=== PATIENT | female | born 1990 | race Two or more races ===

== ENCOUNTER 2024-08-07 12:02 | Inpatient (IN) | payer MEDICAID, SELFPAY ==
[2024-08-07] VITALS (7 sets, daily range): BP systolic 136–165; BP diastolic 20–88; PULSE 99–110; RESP 18–28; TEMP 36.8–37.5; O2SAT 95–99
--- NOTE | 2024-08-07 | XR_ITS ---
Examination: MRI of brain without intravenous contrast. MRI brain with intravenous contrast. Date and time of exam:August 07, 2024 6:22 PM INDICATIONS: Seizures beginning 5:00 AM this morning history seizures Technique: Multiple axial and sagittal images of the brain to been obtained. Siemens high-resolution 1.52 Yvonne short bore scanner utilized. Sagittal sections, T1 weighted images, TR 500, TE 14, are performed. Axial sections proton-density and T2-weighted images have been obtained. Inversion recovery axial images, TR 9260, TE 111, TR 2500. Diffusion weighted images, axial sections, TR 4800, TE 128, B value 1000. Axial sections, ADC map, TR 4800, TE 128. Axial and coronal images were also obtained post 20 cc gadolinium administered intravenously. Findings:: Enlargement of the sella turcica is not present. The optic chiasm and infundibular stalk are not remarkable. There is no localized enlargement of the medulla or barry. Fourth ventricle and cerebellar tonsils appear normal in position. No subacute area of hemorrhage density is seen. Fourth ventricle is midline. Mass in the cerebellopontine angle region is not evident. 7th and 8th nerve complexes exhibit symmetry Globes are symmetrical Orbital musculature including medial lateral rectus muscles do not exhibit abnormality Increased white matter signal is evident, periventricular and punctate foci increased signal in the occipital white matter bilaterally and right frontal white matter Effacement of the cortical sulcal markings is not identified. Mass effect upon the ventricular system is not identified. Diffusion-weighted images demonstrate no focus of restricted diffusion Contrast images demonstrate no abnormal enhancement Impression: Punctate foci increased signal in the cerebral white matter, demyelinating disease pattern
--- NOTE | 2024-08-07 12:19 | PD.EDSEIZ ---
ED Seizures RME/HPI General Chief Complaint: Seizure Stated Complaint: SEIZURE WITH HIGH GLUCOSE, NAUSEA, H/A Time Seen by Provider: 08/07/24 12:19 Arrival date/time: 08/07/24 12:02 34 year old female with past medical history of DM and seizure (2x monthly) with c/o of emergency room via EMS with c/o of 4 episode since 5am this morning. pt is currently on keppra 500mg twice a day. pt had < 1 minute seizure while in ER. Per patient had multi vomiting episode when the 2nd seizure occurred prior to going to the local clinic. LOCATION: generalized decreased mentation without focality SEVERITY: Symptoms are described as being severe with limitations on activities of daily living CONTEXT: No identifiable inciting events. DURATION/TIMING: The symptoms started approximately one day ago and have been constant and progressively getting worse. ASSOCIATED SYMPTOMS: The patient is unable to identify any other associated symptoms. MODIFYING FACTORS: The patient is unable to identify any alleviating or aggravating symptoms. PERTINENT ROS: no fevers, no anorexia, no diarrhea, no ripping or tearing sensations, no syncope or presyncopal symptoms, denies trauma, no unexplained rashed or joint pain REVIEW OF SYSTEMS: See History of Present Illness - with the exception of those mentioned in the history of present illness, all other systems reviewed and reported as negative GENERAL: In general the patient is awake, interactive, in an emergency department gurney. obesity HEAD/EYES/EARS/NOSE/THROAT: normo-cephalic, atraumatic,+ lower lip cuts due to seizure. mucus membranes are moist, anicteric, palpebral conjunctiva is pink, trachea is midline. CARDIOVASCULAR: regular rate and regular rhythm, no murmurs, heart sounds are not distant, strong pulses in all four extremities that are equal and symmetric bilateral upper and lower extremities, normal capillary refill. CHEST/PULMONARY: normal chest rise and fall, good air movement, clear to auscultation bilaterally, normal inspiratory to expiratory ratios without evidence of respiratory distress. NECK: No midline/Paraspinal tenderness, no step off ROM/Strenght intact No Kernig and bruzinski sign. No trauma ABDOMEN: soft, not tender, no masses appreciated BACK: normal range of motion without pain. NEUROLOGICAL: cranio-facial features are symmetric, moves all four extremities equally without obvious limitations or weakness. EXTREMITY: no tenderness to palpation over the long bones or large joints of the bilateral upper and lower extremities, no joint swelling, no joint erythema, no signs of trauma, no unilateral leg swelling and no peripheral edema. SKIN: warm, dry, well-perfused, no jaundice, no rash, no telangiectasias or petechia. PSYCH: calm but postictal state? Related Data Allergies Allergy/AdvReac Type Severity Reaction Status Date / Time No Known Allergies Allergy Verified 08/07/24 13:07 Course Course Course Narrative: patient?BIBA s/p shaking/jerking movements witnessed in ER, pt had ?tonic-clonic seizure <1 minute the postictal state currently Differential diagnosis for seizures include nonadherence to anti-epileptic drugs or lowered seizure threshold from infection. No known head trauma, however will CT head as pt altered and increase frequency of seizure? Possible stroke though less likely given overarching symptoms of seizure and no overt focal neuro deficits. Workup: CBC, CMP, Drug screen, UA, CXR, beta, urine, alcohol, lactate, ECG, CT Brain, MRI brain with and without contrast Field Interventions: ED Interventions: ativan 2mg IV, keppra 1gram, IV fluids? Consult: Neurology re EEG Disposition:??Admit Quality Measures none Orders Category Date Time Status EKG (ED ONLY) *Do not use* NOW Care 08/07/24 12:23 Completed IV [Insert IV] STAT Care 08/07/24 12:22 Active MRI Screening NOW Care 08/07/24 12:36 Active Consult to Neurology / Tele-Neurology Stat Cons 08/07/24 12:[address] head/brain wo con Stat Exams 08/07/24 12:24 Completed EKG (ED Only) Stat Exams 08/07/24 12:22 Draft MR head/brain wo/w con Stat Exams 08/07/24 Ordered Alcohol, Blood Medical Stat Lab 08/07/24 12:49 Completed Beta Hydroxybutyrate Stat Lab 08/07/24 12:49 Completed CBC Stat Lab 08/07/24 12:49 Completed CMP [Comprehensive Metabolic Panel] Stat Lab 08/07/24 12:49 Completed Drug Screen,Urine Stat Lab 08/07/24 12:23 Ordered HCG,Qualitative Serum Stat Lab 08/07/24 12:49 Completed Lactic Acid [Lactate (Lactic Acid)] Stat Lab 08/07/24 12:49 Results Levetiracetam (Keppra)* Stat Lab 08/07/24 12:49 Received Lipase Stat Lab 08/07/24 12:49 Completed Mag [Magnesium] Stat Lab 08/07/24 12:49 Completed Troponin I Stat Lab 08/07/24 12:49 Completed LORazepam [Ativan Inj] Med 08/07/24 12:20 Discontinued 2 mg .ROUTE .STK-MED ONE LORazepam [Ativan Inj] Med 08/07/24 12:27 Discontinued 2 mg IVP X1 ONE LORazepam [Ativan Inj] Med 08/07/24 12:44 Discontinued 2 mg IVP X1 ONE Ondansetron Inj [Zofran Inj] Med 08/07/24 12:24 Pending 8 mg IV X1 ONE Sodium Chloride 0.9% 1000 ml [Ns] 1,000 ml Med 08/07/24 12:22 Discontinued IV 999 mls/hr Sodium Chloride 0.9% 1000 ml [Ns] 1,000 ml Med 08/07/24 12:28 Discontinued IV 999 mls/hr levETIRAcetam INJ [Keppra Inj] Med 08/07/24 12:24 Discontinued 1,000 mg IVP X1 ONE levETIRAcetam INJ [Keppra Inj] Med 08/07/24 12:27 Discontinued 1,000 mg IVP X1 ONE Reevaluation(s) Reevaluation #1: 1225 seizure episode 1 minute, post ti Procedures -ED EKG Interpretation #1: Date of EK08/07/24 Time of EK:54 Rate: 113 Interpretation: Reviewed by me EKG Impression: No ischemic changes and Sinus tachycardia Seizure MDM Narrative MDM Narrative:: DISPOSITION: Emergency Department nursing documentation was reviewed including triage complaint, associated symptoms, administration of medications, response to therapy and vital signs. Given the history, physical exam, and review of laboratory and imaging studies the patient is determined to be unsafe for discharge and is being moved into the hospital for further diagnostic tests, treatments, stabilization, and monitored response to therapy. I communicated the history, physical exam, pertinent laboratory and imaging studies to the inpatient physician. The inpatient physician has access to electronic copies of all emergency department laboratory testing and imaging studies as well as medications ordered and administered. Patient data External records reviewed:: None Clinical information provided by:: EMS and spouse Social determinants that could affect healthcare access:: none Patient has the following chronic illnesses:: DM, Seizure How is presenting disease/condition affected by chronic disease/condition?: exacerbated by Evaluation data The following diagnostics were reviewed and interpreted by me:: lab results, radiology exam(s) and EKG tracing(s) Lab and/or radiology exams considered but not ordered:: none Interpretation Summary: cbc wnl cmp bg 415, no dehydration blood glucose 425 trop negative urine wnl lactic 8.6 mg wnl trop negative Medications / Prescriptions Medications or Prescriptions considered but not ordered:: none Medication administrations:: Medication Administration History Ondansetron HCl (Ondansetron Inj 2 Mg/Ml Inj 2 Ml) 8 mg IV X1 ONE; Protocol Stop: 08/07/24 12:25 Discontinued Medications Sodium Chloride (Ns) 1,000 mls @ 999 mls/hr IV .Q1H1M ONE Stop: 08/07/24 13:22 Last Admin: 08/07/24 12:20 Dose: 999 mls/hr Documented By: AMI Sodium Chloride (Ns) 1,000 mls @ 999 mls/hr IV .Q1H1M ONE Stop: 08/07/24 13:28 Levetiracetam (Levetiracetam Inj 100 Mg/Ml Vial 5ml) 1,000 mg IVP X1 ONE Stop: 08/07/24 12:25 Last Admin: 08/07/24 12:40 Dose: 1,000 mg Documented By: AMI Levetiracetam (Levetiracetam Inj 100 Mg/Ml Vial 5ml) 1,000 mg IVP X1 ONE Stop: 08/07/24 12:28 Last Admin: 08/07/24 12:56 Dose: Not Given Documented By: AMI Non-Admin Reason: Cancelled by Provider Lorazepam (Lorazepam 2 Mg/Ml Vial) 2 mg IVP X1 ONE Stop: 08/07/24 12:28 Last Admin: 08/07/24 12:33 Dose: 2 mg Documented By: AMI Lorazepam (Lorazepam 2 Mg/Ml Vial) Confirm Administered Dose 2 mg .ROUTE .STK-MED ONE Stop: 08/07/24 12:21 Last Admin: 08/07/24 12:54 Dose: Not Given Documented By: AMI Non-Admin Reason: Duplicate Medication on eMAR Lorazepam (Lorazepam 2 Mg/Ml Vial) 2 mg IVP X1 ONE Stop: 08/07/24 12:45 Last Admin: 08/07/24 12:45 Dose: 2 mg Documented By: RD as state above Consultations Consultation(s) initiated? (list below): Yes Consultation #1 (Physician, Specialty, Details): Dr. Ramirez 7001 report MRI Brain, EEG and admission will call hospitalist once labs finalized for admission Consultation #2 (Physician, Specialty, Details): 135 will accept patient for admission. Diagnosis Seizure Differential Diagnosis: intractable seizure disorder, focal seizure, generalized seizure, epileptic seizure, status epilepticus and other (dka, dehydration, influenza ) Most likely diagnosis given after review of the tests above:: seizure Admission Indicated Admission indicated?: indicated Admission Request Was there a request for admission?: Yes Admission Attestation Admission request attestation: Discussed case with [] from Hospitalist service regarding admission. Discussed patients ED course, exam findings, labs, and radiology results. The Hospitalist [agrees,declines] to accept the patient for admission. Disposition Plan Disposition Plan: Admit Discharge Plan Plan Patient Disposition: Admit Acute Care w/in Hospital Problem List Clinical Impression: Epileptic seizure Patient/Caregiver Discharge Instructions Print Language: Maltese Stand Alone Forms: Rosa Award Info., Patient Portal Info Letter
[2024-08-07] MEDS: SODIUM CHLORIDE 0.9% 1000 ML 1,000 ML 999 ML IV ×2 (12:20→19:34)
--- NOTE | 2024-08-07 12:22 | EKG_ITS ---
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
--- NOTE | 2024-08-07 12:24 | XR_ITS ---
Examination: CT brain head without contrast. 2-D sagittal coronal reconstructions Date and time of exam:August 07, 2024 at 1227 hours INDICATIONS: Onset multiple seizures today CTDI: vol (mGy):49.1 DLP: (mGycm):946 Technique: Multiple CT axial sections of the brain have been obtained, 5 mm slice thickness. Contrast has not been administered. 2-D sagittal, coronal reconstructions have been obtained Low dose protocols were performed. One or more of the following dose reduction techniques were used; automated exposure control, adjustment of the mA and/or KV according to patient size, use of iterative reconstruction technique. Findings: No significant ventricular enlargement. Intra-axial or extra-axial hemorrhage density is not seen. No mass effect or midline shift Basal cisterns are not remarkable. Fourth ventricle is midline. Cranial vault intact. Impression: Negative for acute hemorrhage, mass effect or midline shift Consider elective brain MRI follow-up, pre and postcontrast, seizure protocol
[2024-08-07] MEDS: LORazepam 2 MG/ML VIAL IVP ×2 (12:33→12:45)
[2024-08-07] MEDS: levETIRAcetam INJ 100 MG/ML VIAL 5ML 1000 MG IVP ×2 (12:40→21:32)
[2024-08-07 12:58] LABS: Red Blood Count 4.43 Miln/mm3 (4.00-5.20); White Blood Count 9.2 Thou/mm3 (3.6-11.0)
[2024-08-07 12:59] LABS: Basophils % (Auto) 0 % (0-2.5); Eosinophils % (Auto) 0 % (0-10); Hematocrit 37.9 % (36.0-46.0); Hemoglobin 13.6 g/dL (12.0-16.0); Immature Granulocytes % (Auto) 1 % (0-0); Lymphocytes # (Auto) 1.4 Thou/mm3 (1.0-4.8); Lymphocytes % (Auto) 15 % (10-50); Mean Corpuscular HGB Conc 35.9 g/dl (31.0-37.0); Mean Corpuscular Hemoglobin 30.7 pg (25.0-35.0); Mean Corpuscular Volume 86 fL (80-100); Monocytes # (Auto) 0.7 Thou/mm3 (0.0-0.8); Monocytes % (Auto) 7 % (0-12); Neutrophils # (Auto) 7.1 Thou/mm3 (1.8-7.7); Neutrophils % (Auto) 77 % (37-80); Nucleated Red Blood Cell % 0 /100 WBC (0); Platelet Count 181 Thou/mm3 (140-440); RDW Standard Deviation 38.5 fL (36.4-46.3)
[2024-08-07 13:08] LABS: Beta Hydroxybutyrate 0.2 mmol/L (<0.6)
[2024-08-07 13:15] LABS: Lactate (Lactic Acid) 8.6 mMol/L (0.4-2.0)
[2024-08-07 13:32] LABS: HCG,Qualitative Serum Negative
[2024-08-07 13:50] LABS: Alanine Aminotransferase 30 U/L (10-49); Albumin, Serum 4.5 gm/dL (3.5-5.0); Albumin/Globulin Ratio 1.6 (1.2-2.2); Alcohol, Blood Medical < 3.0 mg/dL (0-10.0); Alkaline Phosphatase 112 U/L (46-116); Anion Gap 15 (7-16); Aspartate Amino Transferase 29 U/L (0-34); BUN/Creatinine Ratio 19 Ratio (12-20); Bilirubin,Total 0.3 mg/dL (0.3-1.2); Blood Urea Nitrogen 13 mg/dL (9-23); Calcium 8.9 mg/dL (8.3-10.6); Calcium (Corrected) 8.9 mg/dL (8.5-10.1); Chloride 104 mMol/L (98-107); Creatinine (Component) 0.7 mg/dL (0.6-1.3); Globulin 2.8 gm/dL (2.3-3.5); Lipase 42 U/L (12-53); Magnesium 1.2 mg/dL (1.6-2.6); Osmolality,Calculated 293 (275-295); Potassium 4.3 mMol/L (3.4-5.1); Sodium 138 mMol/L (136-145); Total Protein 7.3 gm/dL (5.7-8.2); Troponin I < 0.002 ng/mL (0.0-0.045); eGFR > 60 See Note
[2024-08-07 13:53] LABS: Glucose 415 mg/dL (74-106)
--- NOTE | 2024-08-07 15:52 | ESHP_ITS ---
Documentation for date of: 08/07/24 HPI History of Present Illness Chief complaint: seizures History of present illness: Patient is 34 years old female with past medical history of type 2 diabetes mellitus and seizure disorders presented to the ED due to multiple episodes of seizures. Patient is very somnolent and is unable to answer questions, is at the bedside providing most of the history. He reports that patient was normal until approximately August 04 when he found her on the toilet vomiting, he tried to help patient but she became stiff and started seizing which resolved by its own. Over the next couple of days patient was complaining of headaches. Today environmental assistant approximately 5 AM patient started seizing again multiple times. She was taken to the ED where she required multiple doses of benzodiazepines to control her seizures. reported that her previous episode of seizure was approximately 1 year ago. He cannot recall any possible trigger, denies patient to complain of any fever, chills, dizziness, syncope. also stated that they have been dealing with a lot of stress due to recent immigration to the [place]. On admission her glucose 415, lactic acid 8.6, magnesium 1.2, beta hydroxybutyrate 0.2, anion gap 15, HCO3 19. CT of the head was negative for acute findings. EKG was unremarkable. Neurology was consulted and recommended to admit patient to the hospital for further evaluation treatment. PMH: type 2 diabetes mellitus and seizure disorders. PSH: none. SH: unremarkable. FH: none. Allergies: NKA. Medications: Ozempic, glargine 25 units daily, levetiracetam 1 g daily, metformin. Review of Systems Review of Systems ROS Unobtainable: unobtainable due to mental status Exam Narrative Exam Gen: Well-developed and well-nourished female. HEENT: NCAT, PERRLA, EOMI, MMM, anicteric conjunctivae, poor dentition. CVS: normal S1 and S2. RRR. No M/R/G. Resp: CTA B/L. No rhonchi, rales, crackles or wheezing. Abd: soft, non-tender, non-distended. BS+ in all 4 quadrants. MSK: Good ROM in BUE & BLE. No edema or rash. Neuro: Limited exam due to significant somnolence, able to follow simple commands. Results: Labs 08/08/24 04:35 08/08/24 04:35 Labs: Short CBC 08/07/24 Range/Units 12:49 WBC 9.2 (3.6-11.0) Thou/mm3 Hgb 13.6 (12.0-16.0) g/dL Hct 37.9 (36.0-46.0) % Plt Count 181 (140-440) Thou/mm3 BMP 08/07/24 12:49 Sodium 138 Potassium 4.3 Chloride 104 Carbon Dioxide 19.0 L BUN 13 Creatinine 0.7 Glucose 415 H* Calcium 8.9 Cardiac Enzymes 08/07/24 Range/Units 12:49 Troponin I < 0.002 (0.0-0.045) ng/mL Liver Function 08/07/24 Range/Units 12:49 Total Bilirubin 0.3 (0.3-1.2) mg/dL AST 29 (0-34) U/L ALT 30 (10-49) U/L Alkaline Phosphatase 112 (46-116) U/L Albumin 4.5 (3.5-5.0) gm/dL Quality Measures Quality Measures VTE prophylaxis Medications Home Medications and Allergies Allergies Allergy/AdvReac Type Severity Reaction Status Date / Time No Known Allergies Allergy Verified 08/07/24 13:07 Visit Medications Dextrose (Dextrose 50%-Water Inj 50 Ml Syringe) 25 ml IV Q15MIN PRN PRN Reason: BG 50-70 responsive npo pt Stop: 09/06/24 15:36 Dextrose (Dextrose 50%-Water Inj 50 Ml Syringe) 50 ml IV Q15MIN PRN PRN Reason: BG <50 OR BG <70 & pt unresponsive Stop: 09/06/24 15:36 Enoxaparin Sodium (Enoxaparin Sod Inj 40 Mg/0.4 Ml Syringe) 40 mg SC QDAY [facility] Stop: 08/22/24 08:59 Glucagon (Glucagon Inj 1 Mg Vial) 1 mg IM Q15MIN PRN PRN Reason: BG <70, and no IV access Sodium Chloride (Ns) 1,000 mls @ 75 mls/hr IV .[id number] ROSA Stop: 08/08/24 18:24 Magnesium Sulfate (Magnesium Sulfate Ivpb) 4 gm in 50 mls @ 12.5 mls/hr IV X1 ONE Stop: 08/07/24 19:39 Insulin Human Lispro (Insulin Lispro (Admelog) 1 Unit/0.01 Ml Unit) 0 unit SC Q6HR ROSA; Protocol Stop: 09/06/24 15:44 Levetiracetam (Levetiracetam Inj 100 Mg/Ml Vial 5ml) 1,000 mg IVP Q12HR ROSA Stop: 09/06/24 20:59 Lorazepam (Lorazepam 2 Mg/Ml Vial) 2 mg IVP Q15M PRN PRN Reason: SEIZURES Stop: 08/12/24 15:41 Discontinued Medications Sodium Chloride (Ns) 1,000 mls @ 999 mls/hr IV .Q1H1M ONE Stop: 08/07/24 13:22 Last Admin: 08/07/24 12:20 Dose: 999 mls/hr Sodium Chloride (Ns) 1,000 mls @ 999 mls/hr IV .Q1H1M ONE Stop: 08/07/24 13:28 Levetiracetam (Levetiracetam Inj 100 Mg/Ml Vial 5ml) 1,000 mg IVP X1 ONE Stop: 08/07/24 12:25 Last Admin: 08/07/24 12:40 Dose: 1,000 mg Levetiracetam (Levetiracetam Inj 100 Mg/Ml Vial 5ml) 1,000 mg IVP X1 ONE Stop: 08/07/24 12:28 Last Admin: 08/07/24 12:56 Dose: Not Given Lorazepam (Lorazepam 2 Mg/Ml Vial) 2 mg IVP X1 ONE Stop: 08/07/24 12:28 Last Admin: 08/07/24 12:33 Dose: 2 mg Lorazepam (Lorazepam 2 Mg/Ml Vial) 2 mg IVP X1 ONE Stop: 08/07/24 12:45 Last Admin: 08/07/24 12:45 Dose: 2 mg Ondansetron HCl (Ondansetron Inj 2 Mg/Ml Inj 2 Ml) 8 mg IV X1 ONE; Protocol Stop: 08/07/24 12:25 Assessment & Plan Plan Patient is 34 years old female with past medical history of type 2 diabetes mellitus and seizure disorders presented to the ED due to multiple episodes of seizures. Neurology was consulted and recommended to admit patient to the hospital for further evaluation treatment. #Status epilepticus. #History of seizure disorder. -Patient have not had seizures for almost 1 year, on August 04 she developed first episode of seizure during vomiting VePesid but her which resolved by its own. Since then she was complaining of headaches on and off. On August 07 environmental assistant after approximately 5 AM she started seizing continuously and was taken to the ED. She was requiring multiple benzodiazepine administrations to control her seizures. She takes levetiracetam 1 g daily at home. Plan: -Neurology was consulted. -Levetiracetam 1 g twice daily was started. -Brain MRI ordered. -EEG ordered. -Admitted to telemetry with seizure precautions. -Lorazepam as needed for seizures. #Hyperglycemia. #History of type 2 diabetes mellitus. -Patient is taking metformin, insulin glargine 25 units daily and Ozempic. -On admission glucose 415, BHB 0.2, anion gap 15. No A1c records. Plan: -10 units of regular insulin now. -Continue monitoring glucose. -Started on sliding scale insulin. -Resume home insulin glargine 25 units daily. -Hold home metformin and Ozempic. #Lactic acidosis. -likely due to status epilepticus, will continue to monitor. #Hypomagnesemia. -repleted with 4g of Mg sulfate IV. FEN: NPO. DVT prophylaxis: Lovenox. GI prophylaxis: none. Dispo: telemetry. CODE STATUS: FULL CODE. Plan of care discussed with attending Dr. White. Herbert Hui MD, PGY 2. Disclaimer: This note was dictated by speech recognition. Minor errors in um rn may be present due to voice recognition software. Attending Provider Attestation/Addendum I reviewed labs, imaging, EKG, home medications and prior available records. Face to face evaluation was performed by me. I have personally examined the patient and discussed assessment and plan with the IM team. I reviewed the resident note and agree with the plan with exceptions as below. 34-year-old female with history of seizure disorder who presented with multiple tonic-clonic seizures Seizure disorder, uncontrolled Uncontrolled diabetes mellitus with hyperglycemia, type II Lactic acidosis, likely due to seizure Hypomagnesemia Her seizures are likely precipitated by hyperglycemia in addition to suboptimal therapy with Keppra Increased Keppra to 1 g twice daily Started the patient on insulin therapy. Monitor fingersticks Repleted magnesium Trend lactic acid Consulted neurology. Ordered MRI of the brain and EEG.
[2024-08-07 15:53] LABS: Reflex Lactate? Y
[2024-08-07 16:17] LABS: Lactic Acid, 3 HR 1.4 mMol/L (0.4-2.0)
[2024-08-07 16:20] LABS: Amphetamine/Methamp Scrn,U Negative (Negative); Barbiturate Screen,Urine Negative (Negative); Benzodiazepines Screen,Urine Negative (Negative); Benzoylecgonine Screen, Ur Negative (Negative); Fentanyl Screen,Urine Negative (Negative); Opiate Screen,Urine Negative (Negative); THC Screen,Urine Negative (Negative)
[2024-08-07 16:47] LABS: Creatine Kinase 70 U/L (34-171); Phosphorous 2.7 mg/dL (2.4-5.1)
--- NOTE | 2024-08-07 17:08 | PC.CC ---
Patient is a 34 year-old female who presents to the hospital for seizures. Rosie MENDOZA made [id number] contact with patient. ASW introduced self, role, and reason for visit. At bedside was patient's , You Mckeon who completed initial assessment with ASW as patient was asleep not alert. Patient's confirmed information on demographics and reports to living at home with the patient, their 7 year-old son, and his [id number]. The family moved here from [place] 8 months ago under witness protection. Per the patient is unemployed. Patient is able to complete her own ADLs and is able to ambulate independently. The patient does not use any DME at home. Patient does not have a primary care provider but plans on going to [facility] in [place] as it is close to their home. Upon discharge the patient plans to return home. social services specialist to follow-up with any discharge needs.
--- NOTE | 2024-08-07 19:30 | PC.NURSE ---
First contact with pt in Room 9, pt in gown, connected to bedside cardiac nurse, call light within reach. Seizure precautions in place, +siderails padded, suction ready at bedside. Pt's currently at bedside, updated on plan of care.
[2024-08-07] MEDS: Magnesium Sulfate 4 GM Ivpb 4 GM/50 ML BAG IV (19:34)
[2024-08-07] MEDS: INSULIN LISPRO (AdmeLOG) 1 UNIT/0.01 ML UNIT SC (19:38)
[2024-08-07] MEDS: SODIUM CHLORIDE 0.9% 1000 ML 1,000 ML 75 ML IV (21:31)
[2024-08-07] MEDS: INSULIN GLARGINE (Lantus) 5 UNIT/0.05 ML (PER 5 UNITS) 25 UNIT SC (21:38)
--- NOTE | 2024-08-07 22:26 | PD.NEUROCONS ---
History of Present Illness Data of Consult Requesting Physician: Gino White MD Primary Care Provider: Physician No Primary/Family Consult Narrative History of present illness: Patient is a 34 years old female with type 2 diabetes mellitus and seizure disorder presented to the ER due to multiple episodes of seizures. H er reports that patient was normal until approximately August 04 when he found her on the toilet vomiting, he tried to help patient but she became stiff and started seizing which resolved by its own. Over the next couple of days patient was complaining of headaches. Since 5 AM today, patient started seizing again multiple times. She was taken to the ER where she required multiple doses of benzodiazepines to control her seizures. reported that her previous episode of seizure was approximately 1 year ago. He cannot recall any possible trigger, denies any fever, chills, dizziness, syncope. also stated that they have been dealing with a lot of stress due to recent immigration to the [place]. Workup in the ER: Glucose 415, lactic acid 8.6, magnesium 1.2, beta hydroxybutyrate 0.2, anion gap 15, HCO3 19. CT of the head was negative for acute findings. EKG was unremarkable. Neurology was consulted and recommended to admit patient to the hospital for further evaluation treatment. cc:: cc: Gino White MD Review of Systems Review of Systems Systems Reviewed: All systems reviewed, normal except as documented Meds Home Medications and Allergies Allergies Allergy/AdvReac Type Severity Reaction Status Date / Time No Known Allergies Allergy Verified 08/07/24 13:07 Exam - Neurology Vital Signs Temp Pulse Resp BP Pulse Ox O2 Del Method O2 Flow Rate 98.3 F 103 H 24 H 165/85 H 97 Room Air 2 08/07/24 21:30 08/07/24 21:30 08/07/24 21:30 08/07/24 21:30 08/07/24 21:30 08/07/24 21:30 08/07/24 17:23 Narrative Exam GENERAL APPEARANCE: Well-developed, obese built female in no acute distress. HEENT: Normocephalic, atraumatic, extraocular movements intact. Pupils: Equal reacting to light and accommodation NECK: Supple, no JVD or bruits. CARDIOVASULAR: Heart: S1, S2 heard, regular without S3-S4 or murmur no rubs or gallops. LUNGS/CHEST: Clear to auscultation bilaterally. No rails, rhonchi, or wheezing. Normal inspection. ABDOMEN: Soft, nontender, with normal bowel sounds. No pulsatile masses. No rebound, rigidity, or guarding. Normal inspection and palpation. EXTREMITIES: Normal inspection and palpation. No edema, clubbing or cyanosis. SKIN: Warm and dry without rashes. Normal inspection. MUSCULOSKELETAL: No cervical, thoracic, lumbar or midline bony tenderness. Normal inspection. NEURO: Alert, awake and oriented x3. Cranial nerves: II through XII grossly intact. Speech and language: Normal with no dysarthria or dysphasia. Motor system: Tone and bulk: Normal: Strength: 5 out of 5 in all 4 extremities; No pronator drift noted. Deep tendon reflexes: 2+ bilaterally symmetrical. Plantar reflex: Downgoing bilaterally. Sensory system: Intact to all modalities of sensation bilaterally. Coordination: Intact to fafoaz-xcuj-teuzm and wzch-bkns-bkgt test bilaterally. No ataxia, no dysmetria, or dysdiadochokinesia noted. No intention tremors noted. Gait: Not tested. No signs of meningeal irritation noted. PSYCHIATRIC: Normal mood and affect. Results Labs 08/08/24 04:35 08/07/24 12:49 Labs: Short CBC 08/07/24 Range/Units 12:49 WBC 9.2 (3.6-11.0) Thou/mm3 Hgb 13.6 (12.0-16.0) g/dL Hct 37.9 (36.0-46.0) % Plt Count 181 (140-440) Thou/mm3 BMP 08/07/24 12:49 Sodium 138 Potassium 4.3 Chloride 104 Carbon Dioxide 19.0 L BUN 13 Creatinine 0.7 Glucose 415 H* Calcium 8.9 Cardiac Enzymes 08/07/24 08/07/24 Range/Units 12:49 16:14 Total Creatine Kinase 70 (34-171) U/L Troponin I < 0.002 (0.0-0.045) ng/mL Liver Function 08/07/24 Range/Units 12:49 Total Bilirubin 0.3 (0.3-1.2) mg/dL AST 29 (0-34) U/L ALT 30 (10-49) U/L Alkaline Phosphatase 112 (46-116) U/L Albumin 4.5 (3.5-5.0) gm/dL Assessment & Plan Assessment and plan (1) Epileptic seizure: Status: Acute Assessment and plan: loaded with keppra. continue with 1500 mg bid FU with EEG AND MRI brain with contrast Sz precautions and Ativan as needed. (2) Acute hyperglycemia: Status: Acute Assessment and plan: needs better control.
[2024-08-08] VITALS (9 sets, daily range): BP systolic 108–147; BP diastolic 73–84; PULSE 92–103; RESP 19–93; TEMP 36.3–37.4; O2SAT 94–100; BMI 41.3
[2024-08-08] MEDS: INSULIN LISPRO (AdmeLOG) 1 UNIT/0.01 ML UNIT SC ×4 (00:35→17:54)
[2024-08-08 06:09] LABS: Basophils % (Auto) 0 % (0-2.5); Eosinophils % (Auto) 0 % (0-10); Hemoglobin 12.8 g/dL (12.0-16.0); Immature Granulocytes % (Auto) 1 % (0-0); Immature Granulocytes Auto 0.04 Thou/mm3 (0.00-0.00); Lymphocytes % (Auto) 25 % (10-50); Mean Corpuscular HGB Conc 35.6 g/dl (31.0-37.0); Mean Corpuscular Hemoglobin 30.8 pg (25.0-35.0); Mean Corpuscular Volume 87 fL (80-100); Monocytes # (Auto) 0.8 Thou/mm3 (0.0-0.8); Monocytes % (Auto) 10 % (0-12); Neutrophils # (Auto) 5.1 Thou/mm3 (1.8-7.7); Neutrophils % (Auto) 64 % (37-80); Nucleated Red Blood Cell % 0 /100 WBC (0); Platelet Count 187 Thou/mm3 (140-440); RDW Standard Deviation 39.2 fL (36.4-46.3); Red Blood Count 4.16 Miln/mm3 (4.00-5.20)
[2024-08-08 06:37] LABS: Alanine Aminotransferase 22 U/L (10-49); Albumin, Serum 4.1 gm/dL (3.5-5.0); Albumin/Globulin Ratio 1.6 (1.2-2.2); Alkaline Phosphatase 99 U/L (46-116); Anion Gap 10 (7-16); Aspartate Amino Transferase 18 U/L (0-34); BUN/Creatinine Ratio 16 Ratio (12-20); Bilirubin,Total 0.3 mg/dL (0.3-1.2); Blood Urea Nitrogen 8 mg/dL (9-23); Carbon Dioxide 25.1 mMol/L (20.0-31.0); Chloride 103 mMol/L (98-107); Creatinine (Component) 0.5 mg/dL (0.6-1.3); Globulin 2.6 gm/dL (2.3-3.5); Glucose 183 mg/dL (74-106); Magnesium 1.7 mg/dL (1.6-2.6); Osmolality,Calculated 278 (275-295); Phosphorous 2.9 mg/dL (2.4-5.1); Potassium 3.3 mMol/L (3.4-5.1); Sodium 138 mMol/L (136-145); Thyroid Stimulating Hormone 5.63 uIU/mL (0.55-4.78); Total Protein 6.7 gm/dL (5.7-8.2); eGFR > 60 See Note
[2024-08-08 06:51] LABS: Glucose Estimated Average 189 mg/dL (80-131); Hemoglobin A1C 8.2 % Hgb (4.8-6.0)
[2024-08-08] MEDS: POTASSIUM CHLORIDE 20 mEq TABCR 40 MEQ PO (08:30)
[2024-08-08] MEDS: Magnesium Sulfate 2 GM Ivpb 2 GM/50 ML BAG IV (08:31)
[2024-08-08] MEDS: levETIRAcetam INJ 100 MG/ML VIAL 5ML 1000 MG IVP (08:31)
[2024-08-08] MEDS: ENOXAPARIN SOD INJ 40 MG/0.4 ML SYRINGE SC (08:31)
[2024-08-08] MEDS: levETIRAcetam INJ 100 MG/ML VIAL 5ML 500 MG IVP (08:50)
[2024-08-08 09:51] LABS: Free T4 (Free Thyroxine) 1.15 ng/dL (0.89-1.76)
--- NOTE | 2024-08-08 10:49 | PC.SS ---
rounding note: EEG and MRI pending. :Patient is from home and will return home.
[2024-08-08] MEDS: SODIUM CHLORIDE 0.9% 1000 ML 1,000 ML 75 ML IV (11:32)
--- NOTE | 2024-08-08 15:10 | ESPR_ITS ---
Documentation for date of: 08/08/24 Subjective Subjective Interval history: Patient seen at bedside. No acute overnight events. She has remained seizure free since admission, no fevers either. Evaluated by Neurology and started on Keppra 1500mg BID. MRI shows a demyelinating pattern. Pending EEG Exam Vital Signs Temp Pulse Resp BP Pulse Ox O2 Del Method O2 Flow Rate 97.7 F 92 21 H 112/74 95 Room Air 2 08/08/24 12:00 08/08/24 12:00 08/08/24 12:00 08/08/24 12:00 08/08/24 12:00 08/08/24 12:00 08/07/24 17:23 Narrative Exam GENERAL: AAOX3 NEURO: BENCH MOLDER grossly intact, moves extremities x4 HEENT: Moist mucosa. Eyes open, symmetrical, & clear CARDIO: No chest pain on palpation. Heart RRR, no obvious murmurs PULM: No noted coughing/dyspnea. Lungs CTA B/L GI: Abdomen soft, nondistended, no pain on palpation. BSx4 URO/INFORMATION SERVICES ASSISTANT:: No further abnormalities noted. SKIN/MSK/EXT: No wounds/rashes/edema/amputations, no pain on palpation. Pedal pulses present B/L Objective Labs 08/09/24 05:25 08/09/24 05:25 Labs: Laboratory Results - last 24 hr 08/07/24 08/07/24 08/07/24 15:53 16:14 16:14 WBC RBC Hgb Hct MCV MCH MCHC RDW Std Deviation Plt Count Neut % (Auto) Lymph % (Auto) [place] % (Auto) Eos % (Auto) Baso % (Auto) Neut # (Auto) Lymph # (Auto) [place] # (Auto) Eos # (Auto) Baso # (Auto) Immature Gran # (Auto) Absolute Nucleated RBC Immature Gran % Nucleated RBC % Sodium Potassium Chloride Carbon Dioxide Anion Gap BUN Creatinine Estim Creat Clear Calc eGFR BUN/Creatinine Ratio Glucose Estimated Ave Glu mg/dL Hemoglobin A1c Calculated Osmolality Lactic Acid 1.4 Cancelled Calcium Corrected Calcium Phosphorus 2.7 Magnesium Total Bilirubin AST ALT Alkaline Phosphatase Total Creatine Kinase 70 Total Protein Albumin Globulin Albumin/Globulin Ratio TSH Free T4 Urine Opiates Screen Negative Urine Fentanyl Screen Negative Ur Barbiturates Screen Negative U Amphetamin/Meth Scrn Negative U Benzodiazepines Scrn Negative U Cocaine Metab Screen Negative U Marijuana (THC) Screen Negative 08/08/24 04:35 WBC 8.0 RBC 4.16 Hgb 12.8 Hct 36.0 MCV 87 MCH 30.8 MCHC 35.6 RDW Std Deviation 39.2 Plt Count 187 Neut % (Auto) 64 Lymph % (Auto) 25 [place] % (Auto) 10 Eos % (Auto) 0 Baso % (Auto) 0 Neut # (Auto) 5.1 Lymph # (Auto) 2.0 [place] # (Auto) 0.8 Eos # (Auto) 0.0 Baso # (Auto) 0.0 Immature Gran # (Auto) 0.04 H Absolute Nucleated RBC 0.00 Immature Gran % 1 H Nucleated RBC % 0 Sodium 138 Potassium 3.3 L D Chloride 103 Carbon Dioxide 25.1 Anion Gap 10 BUN 8 L Creatinine 0.5 L Estim Creat Clear Calc Not Performed. eGFR > 60 BUN/Creatinine Ratio [address] Glu mg/dL 189 H Hemoglobin A1c 8.2 H Calculated Osmolality 278 Lactic Acid Calcium 8.0 L Corrected Calcium 8.0 L Phosphorus 2.9 Magnesium 1.7 Total Bilirubin 0.3 AST 18 ALT 22 Alkaline Phosphatase 99 Total Creatine Kinase Total Protein 6.7 Albumin 4.1 Globulin 2.6 Albumin/Globulin Ratio 1.6 TSH 5.63 H Free T4 1.15 Urine Opiates Screen Urine Fentanyl Screen Ur Barbiturates Screen U Amphetamin/Meth Scrn U Benzodiazepines Scrn U Cocaine Metab Screen U Marijuana (THC) Screen Quality Measures Quality Measures VTE prophylaxis Assessment & Plan Assessment Current Active Medications: Generic Name Dose Route Start Last Admin Trade Name Freq PRN Reason Stop Dose Admin Dextrose 25 ml 08/07/24 15:37 Dextrose 50%-Water Inj 50 Ml Syringe IV 09/06/24 15:36 Q15MIN PRN BG 50-70 responsive npo pt Dextrose 50 ml 08/07/24 15:37 Dextrose 50%-Water Inj 50 Ml Syringe IV 09/06/24 15:36 Q15MIN PRN BG <50 OR BG <70 & pt unresponsive Enoxaparin Sodium 40 mg 08/08/24 09:00 08/08/24 08:31 Enoxaparin Sod Inj 40 Mg/0.4 Ml Syringe SC 08/22/24 08:59 40 mg QDAY ROSA Administration Glucagon 1 mg 08/07/24 15:37 Glucagon Inj 1 Mg Vial IM Q15MIN PRN BG <70, and no IV access Sodium Chloride 1,000 mls @ 75 mls/hr 08/07/24 15:45 08/08/24 11:32 Ns IV 08/08/24 18:24 75 mls/hr .[id number] ROSA Administration Insulin Glargine 25 unit 08/07/24 21:00 08/07/24 21:38 Insulin Glargine (Lantus) 5 Unit/0.05 Ml (Per 5 Units) SC 09/06/24 20:59 25 unit HS ROSA Administration Insulin Human Lispro 0 unit 08/08/24 11:30 08/08/24 11:27 Insulin Lispro (Admelog) 1 Unit/0.01 Ml Unit SC 09/07/24 11:29 3 unit AC ROSA Administration Protocol Levetiracetam 1,500 mg 08/08/24 21:00 Levetiracetam Inj 100 Mg/Ml Vial 5ml IVP 09/07/24 20:59 Q12HR ROSA Lorazepam 2 mg 08/07/24 15:42 Lorazepam 2 Mg/Ml Vial IVP 08/12/24 15:41 Q15M PRN SEIZURES Plan Summary: The patient is 34 years old female with past medical history of type 2 diabetes mellitus and seizure disorders presented to the ED due to multiple episodes of seizures. Neurology was consulted and recommended to admit patient to the hospital for further evaluation treatment. #Status epilepticus. #History of seizure disorder. -Patient have not had seizures for almost 1 year, on August 04 she developed first episode of seizure during vomiting VePesid but her which resolved by its own. Since then she was complaining of headaches on and off. On August 07 order control clerk blood bank after approximately 5 AM she started seizing continuously and was taken to the ED. She was requiring multiple benzodiazepine administrations to control her seizures. She takes levetiracetam 1 g daily at home. 08/08/2024- Patient doing well, has remained seizure free since admission. MRI showed a demyelinating pattern. Keppra increased to 1500mg BID per teleneuro recommendations. Pending EEG Plan: -Continue Keppra at 1500mg BID -Pending EEG -Lorazepam as needed for seizures. #Hyperglycemia. #History of type 2 diabetes mellitus. -Patient is taking metformin, insulin glargine 25 units daily and Ozempic. -On admission glucose 415, BHB 0.2, anion gap 15. No A1c records. 08/08/2024- A1c- 8.2, blood glucose this morning 179. Plan: -SC Insulin 25units -ISS -Glucose check AC -Hypoglycemic protocols in place #Lactic acidosis-Resolved -likely due to status epilepticus, will continue to monitor. #Hypomagnesemia-resolved -repleted with 4g of Mg sulfate IV. FEN: NPO. DVT prophylaxis: Lovenox. GI prophylaxis: none. Dispo: telemetry. CODE STATUS: FULL CODE. Case was discussed with Dr Hui PGY-2 and attending physician, Dr Christopher Wynn MD PGY-1 Attending Provider Attestation/Addendum I reviewed labs, imaging, EKG, home medications and prior available records. Face to face evaluation was performed by me. I have personally examined the patient and discussed assessment and plan with the IM team. I reviewed the resident note and agree with the plan with exceptions as below. 34-year-old female with history of seizure disorder who presented with multiple tonic-clonic seizures Seizure disorder, uncontrolled Uncontrolled diabetes mellitus with hyperglycemia, type II Lactic acidosis, likely due to seizure Hypomagnesemia Her seizures are likely precipitated by hyperglycemia in addition to suboptimal therapy with Keppra Increased Keppra to 1.5 g twice daily Started the patient on insulin therapy. Monitor fingersticks. Ensure medication compliance at home Repleted magnesium Trend lactic acid: Normalized Consulted neurology. Ordered MRI of the brain and EEG. MRI showed no acute CVA but possible demyelination changes
--- NOTE | 2024-08-08 15:31 | PC.CC ---
Per request of [employer]I Sheldon, PA submitted for [employer] Maya 3 Plus Sensors #2 and [employer] 3 Souris.
--- NOTE | 2024-08-08 16:39 | RESP.EEG ---
EEG COMPLETED AND READY FOR REVIEW
[2024-08-08] MEDS: INSULIN GLARGINE (Lantus) 5 UNIT/0.05 ML (PER 5 UNITS) 25 UNIT SC (20:26)
[2024-08-08] MEDS: levETIRAcetam INJ 100 MG/ML VIAL 5ML 1500 MG IVP (20:31)
--- NOTE | 2024-08-08 22:13 | PD.NEUROPROG ---
Documentation for date of: 08/08/24 Subjective Subjective Interval history: Patient was seen in Telemetry today, no sz after admission, anxious to go home. Exam - Neurology Vital Signs Temp Pulse Resp BP Pulse Ox O2 Del Method O2 Flow Rate 98.1 F 95 26 H 130/84 95 Room Air 2 08/08/24 20:00 08/08/24 20:00 08/08/24 20:00 08/08/24 20:00 08/08/24 20:00 08/08/24 20:00 08/07/24 17:23 Narrative Exam GENERAL APPEARANCE: Well-developed, obese built female in no acute distress. HEENT: Normocephalic, atraumatic, extraocular movements intact. Pupils: Equal reacting to light and accommodation NECK: Supple, no JVD or bruits. CARDIOVASULAR: Heart: S1, S2 heard, regular without S3-S4 or murmur no rubs or gallops. LUNGS/CHEST: Clear to auscultation bilaterally. No rails, rhonchi, or wheezing. Normal inspection. ABDOMEN: Soft, nontender, with normal bowel sounds. No pulsatile masses. No rebound, rigidity, or guarding. Normal inspection and palpation. EXTREMITIES: Normal inspection and palpation. No edema, clubbing or cyanosis. SKIN: Warm and dry without rashes. Normal inspection. MUSCULOSKELETAL: No cervical, thoracic, lumbar or midline bony tenderness. Normal inspection. NEURO: Alert, awake and oriented x3. Cranial nerves: II through XII grossly intact. Speech and language: Normal with no dysarthria or dysphasia. Motor system: Tone and bulk: Normal: Strength: 5 out of 5 in all 4 extremities; No pronator drift noted. Deep tendon reflexes: 2+ bilaterally symmetrical. Plantar reflex: Downgoing bilaterally. Sensory system: Intact to all modalities of sensation bilaterally. Coordination: Intact to usiazq-kpwl-dmvlt and riza-cqvd-boym test bilaterally. No ataxia, no dysmetria, or dysdiadochokinesia noted. No intention tremors noted. Gait: Not tested. No signs of meningeal irritation noted. PSYCHIATRIC: Normal mood and affect. Objective Labs 08/08/24 04:35 08/08/24 04:35 Labs: Laboratory Results - last 24 hr 08/08/24 04:35 WBC 8.0 RBC 4.16 Hgb 12.8 Hct 36.0 MCV 87 MCH 30.8 MCHC 35.6 RDW Std Deviation 39.2 Plt Count 187 Neut % (Auto) 64 Lymph % (Auto) 25 [place] % (Auto) 10 Eos % (Auto) 0 Baso % (Auto) 0 Neut # (Auto) 5.1 Lymph # (Auto) 2.0 [place] # (Auto) 0.8 Eos # (Auto) 0.0 Baso # (Auto) 0.0 Immature Gran # (Auto) 0.04 H Absolute Nucleated RBC 0.00 Immature Gran % 1 H Nucleated RBC % 0 Sodium 138 Potassium 3.3 L D Chloride 103 Carbon Dioxide 25.1 Anion Gap 10 BUN 8 L Creatinine 0.5 L Estim Creat Clear Calc Not Performed. eGFR > 60 BUN/Creatinine Ratio 16 [address]ucose [address] Glu mg/dL 189 H Hemoglobin A1c 8.2 H Calculated Osmolality 278 Calcium 8.0 L Corrected Calcium 8.0 L Phosphorus 2.9 Magnesium 1.7 Total Bilirubin 0.3 AST 18 ALT 22 Alkaline Phosphatase 99 Total Protein 6.7 Albumin 4.1 Globulin 2.6 Albumin/Globulin Ratio 1.6 TSH 5.63 H Free T4 1.15 Assessment & Plan Assessment and plan (1) Epileptic seizure: Status: Acute Assessment and plan: loaded with keppra. continue with 1500 mg bid MRI brain: showed findings consistent with chronic microvascular disease and not demyelination. FU with EEG Sz precautions and Ativan as needed. (2) Acute hyperglycemia: Status: Acute Assessment and plan: needs better control.
[2024-08-09] VITALS (7 sets, daily range): BP systolic 129–151; BP diastolic 76–90; PULSE 93–130; RESP 20–93; TEMP 36.3–37.4; O2SAT 92–95; BMI 42.4
[2024-08-09 05:50] LABS: Basophils % (Auto) 0 % (0-2.5); Eosinophils % (Auto) 0 % (0-10); Hematocrit 37.8 % (36.0-46.0); Hemoglobin 13.4 g/dL (12.0-16.0); Immature Granulocytes % (Auto) 1 % (0-0); Immature Granulocytes Auto 0.05 Thou/mm3 (0.00-0.00); Lymphocytes # (Auto) 1.7 Thou/mm3 (1.0-4.8); Lymphocytes % (Auto) 17 % (10-50); Mean Corpuscular HGB Conc 35.4 g/dl (31.0-37.0); Mean Corpuscular Hemoglobin 30.5 pg (25.0-35.0); Mean Corpuscular Volume 86 fL (80-100); Monocytes # (Auto) 0.7 Thou/mm3 (0.0-0.8); Monocytes % (Auto) 7 % (0-12); Neutrophils # (Auto) 7.8 Thou/mm3 (1.8-7.7); Neutrophils % (Auto) 76 % (37-80); Nucleated Red Blood Cell % 0 /100 WBC (0); Platelet Count 174 Thou/mm3 (140-440); RDW Standard Deviation 39.3 fL (36.4-46.3); Red Blood Count 4.39 Miln/mm3 (4.00-5.20); White Blood Count 10.4 Thou/mm3 (3.6-11.0)
[2024-08-09 06:37] LABS: Alanine Aminotransferase 21 U/L (10-49); Albumin, Serum 4.1 gm/dL (3.5-5.0); Albumin/Globulin Ratio 1.5 (1.2-2.2); Alkaline Phosphatase 102 U/L (46-116); Anion Gap 11 (7-16); Aspartate Amino Transferase 20 U/L (0-34); BUN/Creatinine Ratio 10 Ratio (12-20); Bilirubin,Total 0.4 mg/dL (0.3-1.2); Blood Urea Nitrogen 7 mg/dL (9-23); Calcium 8.4 mg/dL (8.3-10.6); Calcium (Corrected) 8.4 mg/dL (8.5-10.1); Carbon Dioxide 23.1 mMol/L (20.0-31.0); Chloride 102 mMol/L (98-107); Creatinine (Component) 0.7 mg/dL (0.6-1.3); Estimated Creatinine Clearance 137.4 mL/min (>60); Globulin 2.7 gm/dL (2.3-3.5); Glucose 249 mg/dL (74-106); Magnesium 1.4 mg/dL (1.6-2.6); Osmolality,Calculated 277 (275-295); Phosphorous 2.9 mg/dL (2.4-5.1); Potassium 3.9 mMol/L (3.4-5.1); Sodium 136 mMol/L (136-145); Total Protein 6.8 gm/dL (5.7-8.2); eGFR > 60 See Note
[2024-08-09] MEDS: INSULIN LISPRO (AdmeLOG) 1 UNIT/0.01 ML UNIT SC ×3 (07:51→17:18)
[2024-08-09] MEDS: INSULIN GLARGINE (Lantus) 5 UNIT/0.05 ML (PER 5 UNITS) 3 UNIT SC (08:56)
[2024-08-09] MEDS: levETIRAcetam INJ 100 MG/ML VIAL 5ML 1500 MG IVP (08:56)
[2024-08-09] MEDS: ENOXAPARIN SOD INJ 40 MG/0.4 ML SYRINGE SC (09:00)
[2024-08-09] MEDS: INSULIN LISPRO (AdmeLOG) 1 UNIT/0.01 ML UNIT 2 UNIT SC (09:59)
--- NOTE | 2024-08-09 14:56 | PD.RESDS ---
Planned Discharge Date 08/09/24 DS: Providers Provider Date of admission: 08/07/24 15:36 Primary care physician: Physician No Primary/Family Admitting Provider: Gino White MD Attending Provider on Admission: Gino White MD Consults: 08/07/24 12:36 Consult to Neurology / Tele-Neurology Stat Comment: Consulting Provider: Jann Ramirez 08/08/24 10:19 Referral Registered Dietitian Routine Comment: Referral Registered Dietitian Stat Comment: Attending Provider on DC: Matty Wynn MD Discharging Provider: Matty Wynn MD DS: Diagnosis Problem List Completed Was Problem List Reviewed/Reconciled?: Yes Hospital Course Hospital Course Hospital course: The patient is a 34-year-old female with a past medical history of type II DM and seizure disorder who presented to the ED on 08/07/2024 due to multiple episode of seizures. Prior to this, per she had not had an episode of seizure for about a year. Patient has been on valproic acid for management of seizure disorder however has not been followed by a neurologist. In the ED, patient received multiple doses of benzodiazepines to control her seizures. Additionally, on admission patient was hyperglycemic and had lactic acidosis however within normal anion gap. CT head was done which was negative. Patient was admitted for management of breakthrough seizures. Neurology was consulted and patient was placed on Keppra 1 g twice daily, brain MRI was also done which showed chronic microvascular changes and EEG was done which showed bitemporal epileptiform discharges, consistent with seizures. The patient has remained seizure-free since admission and today is clinically and hemodynamically stable, medically cleared for discharge. She will continue on Keppra 1500 twice daily and has been given medications to control diabetes better. She is recommended to follow-up with her primary care provider or the [facility] within one week of discharge. She is also advised to avoid driving until cleared by neurology. She will follow-up with neurologist Dr Ramirez within 2 weeks of discharge. #History of seizures #Breakthrough seizures #Lactic acidosis #History of type II DM Discharge instructions: Follow-up with your PCP within 1 week of discharge. If you do not have a PCP, please come to the [facility]. Call [phone] for an appointment. Follow-up with neurologist Dr. Ramirez within 2 weeks of discharge Avoid driving until cleared by neurology Use diabetes medication as prescribed. Ensure to check blood sugar twice daily. Return to the ED if symptoms worsen. Case was discussed with Dr Hui PGY-2 and attending physician, Dr Christopher Wynn MD PGY-1 Disclaimer: This note was dictated by speech recognition. Minor errors in test engineering technician may be present due to voice recognition software. Status at Discharge Overall status at discharge: patient is back to baseline Time Spent with Patient Time attestation: Total time spent providing and/or coordinating discharge services: Time spent: Greater than 30 minutes Exam Vital Signs Temp Pulse Resp BP Pulse Ox O2 Del Method O2 Flow Rate 98.1 F 103 H 24 H 151/90 H 95 Room Air 2 08/09/24 12:00 08/09/24 12:00 08/09/24 12:00 08/09/24 12:00 08/09/24 12:00 08/09/24 12:00 08/09/24 12:00 Narrative Exam GENERAL: AAOX3 NEURO: PRIMARY EDUCATION PROFESSOR grossly intact, moves extremities x4 HEENT: Moist mucosa. Eyes open, symmetrical, & clear CARDIO: No chest pain on palpation. Heart RRR, no obvious murmurs PULM: No noted coughing/dyspnea. Lungs CTA B/L GI: Abdomen soft, nondistended, no pain on palpation. BSx4 URO/BILLING SERVICES MANAGER:: No further abnormalities noted. SKIN/MSK/EXT: No wounds/rashes/edema/amputations, no pain on palpation. Pedal pulses present B/L Discharge Plan Plan Patient Disposition: HOME (Self Care) Care Plan Goals: Follow-up with your Primary Care Physician within 1 week of discharge. If you do not have a Primary Care Physician please come to the [facility]. Call [phone] for an appointment. Follow-up with neurologist Dr. Ramirez within 2 weeks of discharge Avoid driving until cleared by neurology Use diabetes medication as prescribed. Ensure to check blood sugar twice daily. Return to the ED if symptoms worsen. Diane un seguimiento con fuentes m?dico de atenci?n primaria dentro de 1 semana despu?s del joann. Si no cuentas con M?dico de Atenci?n Primaria por favor ac?rcate al [facility] acad?juan c. Llame al [phone] para programar shelly sheila. Seguimiento con el neur?logo Dr. Ramirez dentro de las 2 semanas posteriores al joann Evite conducir hasta que el neurol?gico lo autorice. Utilice los medicamentos para la diabetes seg?n lo recetado. Aseg?rese de controlar el nivel de az?car en [place] dos veces al d?a. Regrese al servicio de urgencias si los s?ntomas empeoran. Prescriptions/Referrals Prescriptions/Med Rec: New Ozempic 0.25 mg or 0.5 mg (2 mg/3 mL) pen injector 0.25 mg subcut QWEEK Qty: 3 0RF Rx Instructions: for 4 weeks levetiracetam [Keppra] 1,000 mg tablet 1,500 mg PO BID 30 Days Qty: 90 0RF insulin degludec 100 unit/mL (3 mL) insulin pen 25 unit subcut QDAY Qty: 15 0RF metformin 500 mg tablet 500 mg PO BID 30 Days Qty: 60 0RF (DME) FreeStyle Maya 3 Plus Sensor Device See Rx Instructions .Route Qty: 1 0RF Rx Instructions: As directed (DME) FreeStyle Maya 3 [place] Misc See Rx Instructions .Route Qty: 1 0RF Rx Instructions: As directed Referrals: No Primary/Family,Physician [Primary Care Provider] - Jann Ramirez MD [Physician] - Patient/Caregiver Discharge Instructions Other Discharge Activity Instructions:: Follow-up with your Primary Care Physician within 1 week of discharge. If you do not have a Primary Care Physician please come to the [facility]. Call [phone] for an appointment. Follow-up with neurologist Dr. Ramirez within 2 weeks of discharge Avoid driving until cleared by neurology Use diabetes medication as prescribed. Ensure to check blood sugar twice daily. Return to the ED if symptoms worsen. Education Materials: Epilepsy How Seizures Affect Body, Diagnosing Epilepsy, Epilepsy: Safety During a Seizure, How to Check Your Blood Sugar, Discharge Instructions for Epilepsy, Glucose Check Steps Print Language: Sinhala Stand Alone Forms: Rosa Award Info., Patient Portal Info Letter Discharge Order Discharge Orders: Discharge (Routine); Ordered 08/09/24 Ordered By: Matty Wynn Quality Discharge Quality Measures VTE prophylaxis Attestestation MD Attestation I reviewed labs, imaging, EKG, home medications and prior available records. Face to face evaluation was performed by me. I have personally examined the patient and discussed assessment and plan with the IM team. I reviewed the resident note and agree with the plan with exceptions as below. 34-year-old female with history of seizure disorder who presented with multiple tonic-clonic seizures Seizure disorder, uncontrolled Uncontrolled diabetes mellitus with hyperglycemia, type II Lactic acidosis, likely due to seizure Hypomagnesemia Her seizures are likely precipitated by hyperglycemia in addition to suboptimal therapy with Keppra Increased Keppra to 1.5 g twice daily Resume home diabetes medications. Ensure medication compliance at home Repleted magnesium. Follow-up level as outpatient Trend lactic acid: Normalized Consulted neurology. Ordered MRI of the brain and EEG. MRI showed no acute CVA but chronic microvascular changes. Outpatient follow-up with neurology. Time spent is 40 minutes. More than 50% of the time was spent on patient education and coordination of care.
--- NOTE | 2024-08-09 16:30 | PC.NURSE ---
at bedside for discharge, checked with MD regarding medications on discharge, medications being updated still. to return after 1700.
--- NOTE | 2024-08-09 18:34 | PC.NURSE ---
Dr Taylor in to see and assess patient
--- NOTE | 2024-08-09 23:48 | ESPR_ITS ---
Documentation for date of: 08/09/24 Subjective Subjective Interval history: Patient was seen in Telemetry today, no sz after admission, anxious to go home. Exam - Neurology Vital Signs Temp Pulse Resp BP Pulse Ox O2 Del Method O2 Flow Rate 99.0 F 112 H 25 H 150/85 H 93 L Room Air 2 08/09/24 16:00 08/09/24 16:00 08/09/24 16:00 08/09/24 16:00 08/09/24 16:00 08/09/24 16:00 08/09/24 15:01 Narrative Exam GENERAL APPEARANCE: Well-developed, obese built female in no acute distress. HEENT: Normocephalic, atraumatic, extraocular movements intact. Pupils: Equal reacting to light and accommodation NECK: Supple, no JVD or bruits. CARDIOVASULAR: Heart: S1, S2 heard, regular without S3-S4 or murmur no rubs or gallops. LUNGS/CHEST: Clear to auscultation bilaterally. No rails, rhonchi, or wheezing. Normal inspection. ABDOMEN: Soft, nontender, with normal bowel sounds. No pulsatile masses. No rebound, rigidity, or guarding. Normal inspection and palpation. EXTREMITIES: Normal inspection and palpation. No edema, clubbing or cyanosis. SKIN: Warm and dry without rashes. Normal inspection. MUSCULOSKELETAL: No cervical, thoracic, lumbar or midline bony tenderness. Normal inspection. NEURO: Alert, awake and oriented x3. Cranial nerves: II through XII grossly intact. Speech and language: Normal with no dysarthria or dysphasia. Motor system: Tone and bulk: Normal: Strength: 5 out of 5 in all 4 extremities; No pronator drift noted. Deep tendon reflexes: 2+ bilaterally symmetrical. Plantar reflex: Downgoing bilaterally. Sensory system: Intact to all modalities of sensation bilaterally. Coordination: Intact to [id number] and igik-izpx-mihg test bilaterally. No ataxia, no dysmetria, or dysdiadochokinesia noted. No intention tremors noted. Gait: Not tested. No signs of meningeal irritation noted. PSYCHIATRIC: Normal mood and affect. Objective Labs 08/09/24 05:25 08/09/24 05:25 Labs: Laboratory Results - last 24 hr 08/09/24 05:25 WBC 10.4 RBC 4.39 Hgb 13.4 Hct 37.8 MCV 86 MCH 30.5 MCHC 35.4 RDW Std Deviation 39.3 Plt Count 174 Neut % (Auto) 76 Lymph % (Auto) 17 [place] % (Auto) 7 Eos % (Auto) 0 Baso % (Auto) 0 Neut # (Auto) 7.8 H Lymph # (Auto) 1.7 [place] # (Auto) 0.7 Eos # (Auto) 0.0 Baso # (Auto) 0.0 Immature Gran # (Auto) 0.05 H Absolute Nucleated RBC 0.00 Immature Gran % 1 H Nucleated RBC % 0 Sodium 136 Potassium 3.9 D Chloride 102 Carbon Dioxide 23.1 Anion Gap 11 BUN 7 L Creatinine 0.7 Estim Creat Clear Calc 137.4 eGFR > 60 BUN/Creatinine Ratio 10 L Glucose 249 H D Calculated Osmolality 277 Calcium 8.4 Corrected Calcium 8.4 L Phosphorus 2.9 Magnesium 1.4 L Total Bilirubin 0.4 AST 20 ALT 21 Alkaline Phosphatase 102 Total Protein 6.8 Albumin 4.1 Globulin 2.7 Albumin/Globulin Ratio 1.5 Assessment & Plan Assessment and plan (1) Epileptic seizure: Status: Acute Assessment and plan: continue with 1500 mg bid MRI brain: showed findings consistent with chronic microvascular disease and not demyelination. EEG showed bitemporal epileptiform discharges consistent with seizures. Stable for discharge home and I will see her back in 2 weeks in the clinic. No driving. (2) Acute hyperglycemia: Status: Acute Assessment and plan: needs better control.
[2024-08-12 06:49] LABS: Levetiracetam (Keppra)* 35.1 mcg/mL (6.0-46.0)
== END 2024-08-09 18:20 | disposition home or self-care (01) | DRG 53 ==
LOC: SERX 14:08 → SERHOLD 15:51 → S2NX 08-08 02:49
PROVIDERS: Physician Assistant; Student in an Organized Health Care Education/Training Program; Admitting Provider Student in an Organized Health Care Education/Training Program; Emergency Provider Emergency Medicine; Visit Provider Student in an Organized Health Care Education/Training Program
DX: G40.901 Epilepsy, unspecified, not intractable, with status epilepticus (principal); E11.65 Type 2 diabetes mellitus with hyperglycemia; E87.20 Acidosis, unspecified; E83.42 Hypomagnesemia; Z79.84 Long term (current) use of oral hypoglycemic drugs; Z79.4 Long term (current) use of insulin; Z79.85 Long-term (current) use of injectable non-insulin antidiabetic drugs; Z79.899 Other long term (current) drug therapy
CPT/HCPCS: 36415; 70450; 70553; 80053; 80177; 80307; 80320; 82010; 82550; 83036; 83605; 83690; 83735; 84100; 84439; 84443; 84484; 84703; 85025; 93005; 95816; 96361; 96365; 96366; 96372; 96375; 96376; 99285; A9579; J1650; J1815; J1953; J2060; J3475; J7030; A9270; G0480

== ENCOUNTER 2025-01-28 09:39 | Emergency (ER) | payer MEDICAID, SELFPAY ==
[2025-01-28 09:49] VITALS: BP 140/84; PULSE 68; RESP 18; TEMP 36.9; O2SAT 99; BMI 32.8
--- NOTE | 2025-01-28 09:54 | XR_ITS ---
Examination: Complete OB ultrasound, less than 14 weeks, transabdominal Date and time of exam: January 28, 2025 1022 hours INDICATIONS: Vaginal bleeding beginning this morning, 12 week by history Technique: Obstetrical ultrasound images less than 14 weeks performed via transabdominal imaging Findings: Uterus 8.8 cm Intrauterine gestational sac 3.0 cm corresponding to 8 weeks 1 day gestational age No pole, no cardiac activity Right ovary 2.3 cm arterial flow Left ovary 2.8 cm arterial flow IMPRESSION: Findings most consistent with embryonic demise Recommend short-term follow-up transvaginal pelvic sonography
[2025-01-28 10:37] LABS: Basophils # (Auto) 0.0 Thou/mm3 (0.0-0.2); Basophils % (Auto) 1 % (0-2.5); Eosinophils # (Auto) 0.2 Thou/mm3 (0.0-0.5); Eosinophils % (Auto) 2 % (0-10); Hematocrit 37.5 % (36.0-46.0); Hemoglobin 13.1 g/dL (12.0-16.0); Immature Granulocytes Auto 0.03 Thou/mm3 (0.00-0.00); Lymphocytes # (Auto) 2.6 Thou/mm3 (1.0-4.8); Lymphocytes % (Auto) 33 % (10-50); Mean Corpuscular HGB Conc 34.9 g/dl (31.0-37.0); Mean Corpuscular Hemoglobin 30.2 pg (25.0-35.0); Mean Corpuscular Volume 86 fL (80-100); Monocytes # (Auto) 0.5 Thou/mm3 (0.0-0.8); Monocytes % (Auto) 6 % (0-12); Neutrophils # (Auto) 4.6 Thou/mm3 (1.8-7.7); Neutrophils % (Auto) 58 % (37-80); Nucleated Red Blood Cell # 0.00 Thou/mm3 (0.00-0.00); Nucleated Red Blood Cell % 0 /100 WBC (0); Platelet Count 202 Thou/mm3 (140-440); RDW Standard Deviation 38.9 fL (36.4-46.3); Red Blood Count 4.34 Miln/mm3 (4.00-5.20); White Blood Count 7.9 Thou/mm3 (3.6-11.0)
[2025-01-28 11:07] LABS: Alanine Aminotransferase 18 U/L (10-49); Albumin, Serum 4.4 gm/dL (3.5-5.0); Albumin/Globulin Ratio 1.6 (1.2-2.2); Alkaline Phosphatase 78 U/L (46-116); Anion Gap 10 (7-16); Aspartate Amino Transferase 22 U/L (0-34); BUN/Creatinine Ratio 8 Ratio (12-20); Bilirubin,Total 0.4 mg/dL (0.3-1.2); Blood Urea Nitrogen 5 mg/dL (9-23); Calcium 9.3 mg/dL (8.3-10.6); Calcium (Corrected) 9.3 mg/dL (8.5-10.1); Carbon Dioxide 22.7 mMol/L (20.0-31.0); Chloride 106 mMol/L (98-107); Creatinine (Component) 0.6 mg/dL (0.6-1.3); Estimated Creatinine Clearance 139.3 mL/min (>60); Globulin 2.7 gm/dL (2.3-3.5); Glucose 116 mg/dL (74-106); Osmolality,Calculated 275 (275-295); Potassium 4.0 mMol/L (3.4-5.1); Sodium 139 mMol/L (136-145); Total Protein 7.1 gm/dL (5.7-8.2); eGFR > 60 See Note
[2025-01-28 11:43] LABS: Beta HCG,Quantitative 12911 mIU/mL (<5.0)
--- NOTE | 2025-01-28 11:50 | EDNOTE_ITS ---
<Statement entered by Amber Cole MD - 02/04/25 06:56> As co-signing physician, I was present and available for consult prn. I concur with the plan and care as documented by the midlevel provider. 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 Seen by Provider: 01/28/25 09:53 Arrival date/time: 01/28/25 09:39 34-year-old female diabetic presents to the emergency department today with com plaints of vaginal bleeding which began early this morning patient reports being approximate 12 weeks patient also reports cramping Limitations: no limitations Related Data Previous Rx's ?Medication ?Instructions ?Recorded blood-glucose sensor (FreeStyle #1 ea 08/09/24 Maya 3 Plus Sensor device) blood-glucose,vehicle safety inspector,cont #1 ea 08/09/24 (FreeStyle Maya 3 [place]) insulin degludec 100 unit/mL (3 25 unit (0.25 mL) subc ut QDAY #15 08/09/24 mL) subcutaneous pen mL semaglutide 0.25 mg or 0.5 mg (2 0.25 mg (0.368 mL) fuentes bcut QWEEK #3 08/09/24 mg/3 mL) subcutaneous pen injector mL (Ozempic) Allergies Allergy/AdvReac Type Severity Reaction Status Date / Time No Known Allergies Allergy Verified 01/29/25 08:52 Review of Systems Review of Systems Systems Reviewed: All systems reviewed, normal except as documented Constitutional Constitutional: Reports system reviewed and no additional complaints, except as documented, Denies fever(s) and Denies headache(s) Eyes Eyes: Reports system reviewed and no additional complaints, except as documented and Denies blurry vision ENT Ears, Nose, Mouth, and Throat: Reports system reviewed and no additional complaints, except as documented, Denies headache(s), Denies nasal congestion and Denies nasal discharge Cardiovascular Cardiovascular: Reports system reviewed and no additional complaints, except as documented, Denies chest pain and Denies dyspnea Respiratory Respiratory: Reports system reviewed and no additional complaints, except as documented, Denies chest congestion, Denies cough and Denies dyspnea Gastrointestinal Gastrointestinal: Reports system reviewed and no additional complaints, except as documented and Denies abdominal pain Genitourinary Genitourinary: Reports system reviewed and no additional complaints, except as documented and Reports abnormal vaginal bleeding Integumentary/Breasts Skin/Breast: Reports system reviewed and no additional complaints, except as documented and Denies rash Neurologic Neurologic: Reports system reviewed and no additional complaints, except as documented, Reports as per HPI and Denies headache(s) Past Medical History Past Medical History NEUROLOGIC: Positive Seizures CARDIAC: Negative Congestive Heart Failure RESPIRATORY: Negative Chronic Obstructive Pulmonary Disease (COPD) GENITOURINARY: Negative Renal Disease ENDOCRINE: Positive Diabetes Mellitus Type 2; Negative Diabetes Mellitus Type 1 OTHER HISTORY: Negative Autoimmune Disease Family History FAMILY HISTORY: Positive Family Cancer (Breast cancer); Negative Family Psychiatric Problems, Family Respiratory Disorders, Family Cardiac Disorders, Family Gastrointestinal Problems, Family Surgery or Family Anesthesia Reaction Social History SMOKING STATUS: Never smoker ED Exam General Limitations: Present no limitations General appearance: Present alert and in no apparent distress Head Head exam: Present atraumatic, normocephalic and normal inspection Eye Eye exam: Present normal appearance, PERRL and EOMI; Absent conjunctival injection ENT ENT exam: Present normal exam, normal oropharynx and mucous membranes moist Neck Neck exam: Present normal inspection, full ROM and trachea midline Chest Chest inspection: Present normal inspection and symmetric chest wall rise Respiratory Respiratory exam: Present normal lung sounds bilaterally; Absent respiratory distress Cardiovascular Cardiovascular exam: Present regular rate, normal rhythm and normal heart sounds Abdominal Exam Abdominal exam: Present soft and normal bowel sounds; Absent distention, tenderness, guarding, rebound or rigidity Extremities Exam Extremities exam: Present normal inspection and full ROM Back Exam Back exam: Present normal inspection and full ROM Neurological Exam Neurological exam: Present alert, oriented X3 and CN II-XII intact Psychiatric Psychiatric exam: Present normal affect and normal mood Skin Skin exam: Present warm, dry, intact and normal color Course Quality Measures none Orders Category Date Time Status US OB <= 14 weeks fetus Stat Exams 01/28/25 09:54 Completed ABO/RH Type Stat Lab 01/28/25 10:17 Completed Beta HCG,Quantitative Stat Lab 01/28/25 10:17 Completed CBC Stat Lab 01/28/25 10:17 Completed Comprehensive Metabolic Panel Stat Lab 01/28/25 10:17 Completed Vital Signs Vital signs: Vital Signs Temperature 98.5 F 01/28/25 09:49 Pulse Rate 68 01/28/25 09:49 Respiratory Rate 18 01/28/25 09:49 Blood Pressure 140/84 H 01/28/25 09:49 Pulse Oximetry (%) 99 01/28/25 09:49 Oxygen Delivery Method Room Air 01/28/25 09:49 O2 saturation 99% room air within normal limits Vaginal Bleeding MDM Narrative MDM Narrative: 34-year-old female diabetic presents to the emergency department today with complaints of vaginal bleeding which began early this morning patient reports being approximate 12 weeks patient also reports cramping On exam patient hemodynamically stable patient does not appear ill or toxic in no acute distress Lab work and imaging obtained I suspect the patient had a missed Consultation: I spoke with Dr. Castaneda states he can see the patient as office tomorrow at 9 AM information given to the patient to follow-up tomorrow for emergent concerns to return immediately Patient data External records reviewed:: [facility] previous records Clinical information provided by:: patient Social determinants that could affect healthcare access:: none Patient has the following chronic illnesses:: Diabetes How is presenting disease/condition affected by chronic disease/condition?: uneffected by Evaluation data The following diagnostics were reviewed and interpreted by me:: lab results and radiology exam(s) Lab and/or radiology exams considered but not ordered:: Labs radiology obtain Interpretation Summary: Reviewed by me Medications / Prescriptions Medications or Prescriptions considered but not ordered:: No med Medication administrations:: No med Consultations Consultation(s) initiated? (list below): No Diagnosis Vaginal Bleeding Differential Diagnosis: missed and threatened Most likely diagnosis given after review of the tests above:: Missed Admission Indicated Admission indicated?: not indicated Admission Request Was there a request for admission?: No Disposition Plan Disposition Plan: Discharge Discharge Attestation Discharge Attestation: The patient and all family members were given an opportunity to ask questions and understood the discharge instructions. Discharge instructions specifically effects, indications for sooner follow up or return to the emergency department, and the expected course of current diagnosis. Patient condition: Stable Discharge Plan Plan Patient Disposition: HOME (Self Care) Discharge Disposition comment: Stable Prescriptions/Referrals Prescriptions/Med Rec: No Action Ozempic 0.25 mg or 0.5 mg (2 mg/3 mL) pen injector 0.25 mg subcut QWEEK Qty: 3 0RF Rx Instructions: for 4 weeks insulin degludec 100 unit/mL (3 mL) insulin pen 25 unit subcut QDAY Qty: 15 0RF (DME) FreeStyle Maya 3 Plus Sensor Device See Rx Instructions .Route Qty: 1 0RF Rx Instructions: As directed (DME) FreeStyle Maya 3 [place]elope Misc See Rx Instructions .Route Qty: 1 0RF Rx Instructions: As directed Referrals: Andre Castaneda MD [Physician] - 01/29/25 9:00 am Problem List Clinical Impression: , missed Patient/Caregiver Discharge Instructions Education Materials: ED Missed Miscarriage Additional Instructions: Please follow-up with Dr. Castaneda tomorrow for worsening symptoms return immediately Print Language: Monegasque Stand Alone Forms: Rosa Award Info., Patient Portal Info Letter PA/DIRECTOR OF MEDICAL REVIEW Supervising Physician PA/DIRECTOR OF MEDICAL REVIEW Supervising Physician: dr cole
== END 2025-01-28 12:03 | disposition home or self-care (01) ==
PROVIDERS: Emergency Provider Nurse Practitioner Primary Care
DX: O02.1 Missed abortion (principal)
CPT/HCPCS: 36415; 76801; 80053; 84702; 85025; 86900; 86901; 99283

== ENCOUNTER 2025-01-29 08:34 | Outpatient (AMB) | payer MEDICAID, SELFPAY ==
[2025-01-29 08:51] VITALS: BP 125/86; PULSE 84; RESP 16; TEMP 36.1; O2SAT 97; BMI 41.7
--- NOTE | 2025-01-29 08:51 | AMB.GYNCLNOT ---
Vital Signs 01/29/25 08:51 Height 1.61 m Height Method Stated Weight 108.182 kg Weight Measurement Method Standing Scale BMI 41.7 BP 125/86 H Blood Pressure Source Automatic Cuff Blood Pressure Location Left Upper Arm Position Sitting Respiration 16 Pulse 84 Pulse Source Monitor Temp 97 F Temp Source Oral Pulse Oximetry (%) 97 Oxygen Delivery Method Room Air Allergies/Home Meds Allergies & Medications Allergies No Known Allergies Allergy (Verified 01/29/25 08:52) Medication Reconciliation blood-glucose sensor ([employer] Maya 3 Plus Sensor device) #1 ea 08/09/24 [Rx Confirmed 01/29/25] blood-glucose,datapower consultant,cont (FreeStyle Maya 3 [place]) #1 ea 08/09/24 [Rx Confirmed 01/29/25] insulin degludec 100 unit/mL (3 mL) subcutaneous pen 25 unit (0.25 mL) subcut QDAY #15 mL 08/09/24 [Rx Confirmed 01/29/25] semaglutide 0.25 mg or 0.5 mg (2 mg/3 mL) subcutaneous pen injector (Ozempic) 0.25 mg (0.368 mL) subcut QWEEK #3 mL 08/09/24 [Rx Confirmed 01/29/25] Intake Visit Data Collection New Patient or Established: Established Patient (seen at [facility] within 3 years) Reason for Visit:: ER FOLLOW UP/ SAB Seen by Clinical Staff ONLY (RN/MA): No Banjo Repair Person Required: Yes Banjo Repair Person's name/title: NICHOLAS HINES Do You Feel Safe at Home: Yes Authorities Contacted: N/A PCP or OBGYN visit in last 3 months: Yes Hx Now: No Are you currently on any form of Control: No Last menstrual period: 10/20/24 Pain Present Currently: No Pain Scale Used: [place]/Numerical Pain scale:: 0 Smoking Status Smoking Status: Never smoker 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 Menstrual regularity: regular Flow: normal Monthly: Yes How many days does period last: 4 Age at menarche: 15 Currently sexually active: No 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 She was found to have a measuring 8 weeks with no detectable heartbeat on ultrasound, consistent with a possible miscarriage. The patient reports no current symptoms of bleeding, spotting, or cramping. She was informed that when a measures more than 6 weeks with no heartbeat, it is typically indicative of a miscarriage. A second confirmatory ultrasound has been recommended before proceeding with any further management or medications. Her current is at a gestational age of 8 weeks, with a suspected miscarriage due to no heartbeat detected on ultrasound. The patient's medical history includes an emergency room visit yesterday. In her social history, it is noted that she recently went on a beach trip. Exam General Limitations: no limitations General Appearance: alert, in no apparent distress and comfortable Head Head exam: atraumatic and normocephalic Eye Eye exam: Present normal appearance, PERRL and EOMI Neck Neck exam: Present normal inspection and full ROM Chest Chest inspection: Present normal inspection and symmetric chest wall rise; Absent tenderness Resp Respiratory exam: Present normal lung sounds bilaterally; Absent respiratory distress Card Cardiovascular exam: Present regular rate and normal rhythm Abdominal Abdominal exam: Present soft and normal bowel sounds; Absent tenderness, guarding, rebound or rigidity Neuro Neurological exam: Present alert and oriented X3 Psych Psychiatric exam: Present normal affect Office Procedures OB Clinic LOC & Office Proc's Nursing/Assessment Patient Status: Established Patient OB Clinic Nursing Assessment: Medication Reconciliation, Update PMH in EMR and Vital Signs OB Clinic Coordination of Care: Complex Care and Chronic Disease 1-5, Consent,records obtained, informed consent, Education Simp Pt/Fam, Lab and Imaging orders, Results/Orders obtained and Staff clarify orders Established Patient Charge Established Patient Point Assignment: 105 Established Patient Point Charge: EP Level 3 (80-115) Assessment & Plan Diagnosis / Problem List (1) Threatened : Status: Acute Plan Suspected Miscarriage Plan: - Order second confirmatory ultrasound. - Check insurance coverage for the ultrasound. - Schedule follow-up appointment after ultrasound results are available. - Provide patient education regarding miscarriage and potential next steps. Assessment: - Ultrasound from emergency room visit showed measuring 8 weeks with no detectable heartbeat. - Patient currently denies bleeding, spotting, or cramping. - Second confirmatory ultrasound planned before finalizing diagnosis and discussing treatment options.
== END 2025-01-29 09:33 | disposition home or self-care (01) ==
PROVIDERS: Supervising Provider Obstetrics & Gynecology; Visit Provider Obstetrics & Gynecology
DX: O20.0 Threatened abortion (principal); Z3A.08 8 weeks gestation of pregnancy; O24.111 Pre-existing type 2 diabetes mellitus, in pregnancy, first trimester; Z79.4 Long term (current) use of insulin
CPT/HCPCS: 99213; G0463

== ENCOUNTER 2025-02-07 08:50 | Outpatient (AMB) | payer MEDICAID, SELFPAY ==
[2025-02-07 09:26] VITALS: BP 115/74; PULSE 97; RESP 17; TEMP 36.4; O2SAT 96; BMI 41.6
--- NOTE | 2025-02-07 09:26 | AMB.GYNCLNOT ---
Vital Signs 02/07/25 09:26 Height 1.61 m Height Method Measured Weight 108.068 kg Weight Measurement Method Standing Scale BMI 41.6 BP 115/74 Blood Pressure Source Automatic Cuff Blood Pressure Location Right Upper Arm Position Sitting Respiration 17 Pulse 97 Pulse Source Monitor Temp 97.5 F Temp Source Temporal Artery Scan Pulse Oximetry (%) 96 Oxygen Delivery Method Room Air Allergies/Home Meds Allergies & Medications Allergies No Known Allergies Allergy (Verified 02/11/25 17:08) Medication Reconciliation blood-glucose sensor (FreeStyle Maya 3 Plus Sensor device) #1 ea 08/09/24 [Rx Confirmed 02/11/25] blood-glucose,utilization coordinator,cont (FreeStyle Maya 3 [place]) #1 ea 08/09/24 [Rx Confirmed 02/11/25] insulin degludec 100 unit/mL (3 mL) subcutaneous pen 25 unit (0.25 mL) subcut QDAY #15 mL 08/09/24 [Rx Confirmed 02/11/25] semaglutide 0.25 mg or 0.5 mg (2 mg/3 mL) subcutaneous pen injector (Ozempic) 0.25 mg (0.368 mL) subcut QWEEK #3 mL 08/09/24 [Rx Confirmed 02/11/25] Intake Visit Data Collection New Patient or Established: Established Patient (seen at [facility] within 3 years) Reason for Visit:: MISCARRIAGE FOLLOW UP Consent obtained for Telemed Visit: No Seen by Clinical Staff ONLY (RN/MA): No [employer] Buffer Required: Yes [employer] Buffer's name/title: ARANZA PATE Do You Feel Safe at Home: Yes Authorities Contacted: N/A PCP or OBGYN visit in last 3 months: Yes Date of Last PCP or OBGYN visit: 01/29/25 Are you currently on any form of Control: No Pain Present Currently: No Pain Scale Used: [place]/Numerical Pain scale:: 0 Smoking Status Smoking Status: Never smoker 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 1. Little interest or pleasure in doing things: not at all 2. Feeling down, depressed, or hopeless: not at all Total score: 0 PHQ-9 3. Trouble falling or staying asleep, or sleeping too much: Not at all 4. Feeling tired or having little energy: Not at all 5. Poor appetite or overeating: Not at all 6. Feeling bad about yourself - or that you are a failure or have let yourself or your family down: Not at all 7. Trouble concentrating on things, such as reading the newspaper or watching television: Not at all 8. Moving or speaking so slowly that other people could have noticed? - Or the opposite - being so fidgety or restless that you have been moving around a lot more than usual: not at all 9. Thoughts that you would be better off or of hurting yourself in some way: Not at all Total score: 0 Source: Developed by Drs. Yayo Rodriguez, Joceline Frazier, Alejandro Lacy and colleagues, with an educational hamilton from [employer]. Social History Living Situation History Housing: House Tobacco History Smoking Status: Never smoker Alcohol History Alcohol Intake: Never Domestic Abuse History Do You Feel Safe at Home: Yes History of Present Illness HPI Narrative Bindu Ordoñez, a patient with a history of seizures and diabetes, presents for follow-up after a first-trimester miscarriage. She was initially seen on January 29, 2025, following an ER visit at 8 weeks gestation with no heart tones detected. At the time of her previous visit, Bindu was not convinced of the miscarriage diagnosis and sought a second opinion at [facility]. An ultrasound performed there on January 30 confirmed the absence of a heartbeat. Approximately a week ago, Bindu experienced additional bleeding. She reports taking medication, presumably misoprostol, to aid in the miscarriage process. She has an obstetric history of A1 L0. The patient notes that she had a first trimester miscarriage, diagnosed at 8 weeks gestation with no heart tones. She took medication, likely misoprostol, to manage the miscarriage about a week prior to this visit. The patient has been taking Ozempic, seizure medication, and insulin. Bindu expresses concerns about her current medications, including those for seizures and diabetes, potentially affecting future pregnancies. She is considering trying to conceive again but is worried about the impact of her current treatment regimen on a developing fetus. She has a history of seizures and diabetes. The patient is not currently . ROS: Genitourinary: Positive for vaginal bleeding one week ago. Negative except as stated above, limited to KITCHEN ASSISTANT and pertinent complaints. Exam General General Appearance: alert, in no apparent distress and healthy appearing Head Head exam: atraumatic Neck Neck exam: Present normal inspection and trachea midline Chest Chest inspection: Present normal inspection and symmetric chest wall rise External exam: Present normal external exam; Absent tenderness Neuro Neurological exam: Present oriented X3 Psych Psychiatric exam: Present normal affect and normal mood Assessment & Plan Diagnosis / Problem List (1) Threatened : Status: Acute Plan First Trimester Miscarriage: - Diagnosed at 8 weeks gestation with no heart tones. - Patient initially presented on 01/29/2025 after ER visit, confirmed with second opinion ultrasound on 01/30/2025. - Additional bleeding reported one week ago with misoprostol management. Plan: - Perform blood test and ultrasound today to confirm complete evacuation of tissue. - Phone visit scheduled for Monday or Monday to discuss results. - Provide printed test orders to patient. Preconception Counseling: - Patient desires to conceive with concerns about current medications for seizures, diabetes, and Ozempic affecting future . - History of seizures and diabetes requiring careful planning management. Plan: - Consult with internal medicine doctor for management of epilepsy and diabetes medications. - Discontinue Ozempic if trying to conceive. - Consider insulin as safest option for diabetes management during . - Inform doctor at upcoming Monday appointment about plans and need for medication adjustment.
== END 2025-02-07 10:01 | disposition home or self-care (01) ==
LOC: HODSOBC 08:50
PROVIDERS: Supervising Provider Obstetrics & Gynecology; Visit Provider Obstetrics & Gynecology
DX: O03.89 Complete or unspecified spontaneous abortion with other complications (principal); E11.9 Type 2 diabetes mellitus without complications; G40.909 Epilepsy, unspecified, not intractable, without status epilepticus; Z79.4 Long term (current) use of insulin; Z79.85 Long-term (current) use of injectable non-insulin antidiabetic drugs
CPT/HCPCS: 99213; G0463

== ENCOUNTER 2025-02-11 16:59 | Outpatient (AMB) | payer MEDICAID, SELFPAY ==
--- NOTE | 2025-02-11 17:08 | GYNCLNT_ITS ---
Allergies/Home Meds Allergies & Medications Allergies No Known Allergies Allergy (Verified 02/11/25 17:08) Medication Reconciliation blood-glucose sensor (FreeStyle Maya 3 Plus Sensor device) #1 ea 08/09/24 [Rx Confirmed 02/11/25] blood-glucose,pile driving technician,cont (FreeStyle Maya 3 Edwards) #1 ea 08/09/24 [Rx Confirmed 02/11/25] insulin degludec 100 unit/mL (3 mL) subcutaneous pen 25 unit (0.25 mL) subcut QDAY #15 mL 08/09/24 [Rx Confirmed 02/11/25] semaglutide 0.25 mg or 0.5 mg (2 mg/3 mL) subcutaneous pen injector (Ozempic) 0.25 mg (0.368 mL) subcut QWEEK #3 mL 08/09/24 [Rx Confirmed 02/11/25] Intake Visit Data Collection New Patient or Established: Established Patient (seen at [facility] within 3 years) Reason for Visit:: DISCUSS HCG LEVELS Consent obtained for Telemed Visit: Yes Seen by Clinical Staff ONLY (RN/MA): No Educational Guidance Counselor Required: Yes Educational Guidance Counselor's name/title: ARANZA FLORSE Do You Feel Safe at Home: Yes Authorities Contacted: N/A PCP or OBGYN visit in last 3 months: Yes Hx Now: No Are you currently on any form of Control: No Pain Present Currently: No Pain Scale Used: [place]/Numerical Pain scale:: 0 Smoking Status Smoking Status: Never smoker For Telemed visit only Telemed Video/Phone Visit: Yes Verbal consent obtained for Telemed visit?: Yes Verbal Consent witness name: NORA MARROQUIN 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 1. Little interest or pleasure in doing things: not at all 2. Feeling down, depressed, or hopeless: not at all Total score: 0 PHQ-9 3. Trouble falling or staying asleep, or sleeping too much: Not at all 4. Feeling tired or having little energy: Not at all 5. Poor appetite or overeating: Not at all 6. Feeling bad about yourself - or that you are a failure or have let yourself or your family down: Not at all 7. Trouble concentrating on things, such as reading the newspaper or watching television: Not at all 8. Moving or speaking so slowly that other people could have noticed? - Or the opposite - being so fidgety or restless that you have been moving around a lot more than usual: not at all 9. Thoughts that you would be better off or of hurting yourself in some way: Not at all Total score: 0 Source: Developed by Drs. Yayo Rodriguez, Joceline Frazier, Alejandro Lacy and colleagues, with an educational hamilton from [employer]. Depression screen completed yes Social History Living Situation History Housing: House Tobacco History Smoking Status: Never smoker Alcohol History Alcohol Intake: Never Domestic Abuse History Do You Feel Safe at Home: Yes History of Present Illness HPI Narrative Bindu Ordoñez presents for follow-up after a recent miscarriage. The patient's hormone level has dropped to 93, indicating a complete miscarriage. Lui bahena has been taking Ozempic for glucose management but was advised to discontinue it. The patient is also on seizure medication and is trying to conceive. Bindu reports no current symptoms related to the miscarriage. She has been informed that she can expect a normal menstrual period and can start trying to conceive again after her next period. The patient expresses interest in continuing care with this provider for future pregnancies and has been advised to return as soon as she has a positive test. Regarding her diabetes management, Bindu has been instructed to stop taking Ozempic. Her primary care physician has been involved in adjusting her medications, particularly considering her desire to conceive. She has been informed that insulin is safe to use during . She has an obstetric history of A1 L0. Recent miscarriage, now complete. hormone level has dropped to 93, indicating completion of the miscarriage. The patient has been taking Ozempic which was discontinued. She is also on insulin and seizure medications. ROS: Negative except as stated above, limited to INTERIOR DESIGN PROJECT MANAGER and pertinent complaints. Office Procedures OB Clinic LOC & Office Proc's Nursing/Assessment Patient Status: Established Patient OB Clinic Nursing Assessment: Medication Reconciliation and Update PMH in EMR OB Clinic Coordination of Care: Complex Care and Chronic Disease 1-5, Consent,records obtained, informed consent, Education Simp Pt/Fam, Results/Orders obtained and Staff clarify orders Established Patient Charge Established Patient Point Assignment: 75 Telehealth If patient is seen using Teleconference methods, complete New/Est section, but DO NOT dominic points only dominic the correct Telemed visit type Telemed Phone/Video with patient at home & Dr,PA,PRESCHOOL HEAD TEACHER: Yes Assessment & Plan Diagnosis / Problem List (1) Threatened : Status: Acute Plan Completed Miscarriage: - hormone level dropped to 93, indicating complete miscarriage. - No further follow-up required for this issue. Plan: - No further treatment or follow-up needed for miscarriage. - Anticipate normal menstrual cycle to resume. - May attempt conception after next menstrual period if desired. Diabetes Mellitus: - Glucose levels reported as stable. - Previously on Ozempic but advised to discontinue this medication. Plan: - Discontinue Ozempic. - Continue insulin therapy as previously prescribed. - Follow up with primary care physician for diabetes management and medication adjustments. Seizure Disorder: - Patient reports discussing seizure medications with primary care physician in context of trying to conceive. Plan: - Follow up with primary care physician for adjustment of seizure medications in preparation for potential . Family Planning: - Patient expresses interest in future . - Has discussed this with both primary care physician and current provider. Plan: - Return for obstetric care as soon as test is positive. - Continue care with current provider if occurs.
== END 2025-02-11 17:01 | disposition home or self-care (01) ==
LOC: HODSOBC 16:59
PROVIDERS: Supervising Provider Obstetrics & Gynecology; Visit Provider Obstetrics & Gynecology
DX: O03.9 Complete or unspecified spontaneous abortion without complication (principal); E11.9 Type 2 diabetes mellitus without complications; Z79.4 Long term (current) use of insulin; Z79.85 Long-term (current) use of injectable non-insulin antidiabetic drugs
CPT/HCPCS: 99212; G0463